=== PATIENT | female | born 1995 | race Hispanic/Latino ===

== ENCOUNTER 2024-08-25 18:23 | Emergency (ER) | payer MEDICAID ==
[~2024-08-25] VITALS: Ht 152.4 cm; Wt 63.5 kg
[2024-08-25 18:34] VITALS: BP 105/83; PULSE 92; RESP 18; TEMP 98.7
[2024-08-25] MEDS: 0.9%NACL 1000ML 1,000 ML IV ONE (19:00)
--- NOTE | 2024-08-25 19:21 | NUR ---
PT REFUSING IV AND BLOOD DRAW AT THIS TIME. MOM AT BEDSIDE.
--- NOTE | 2024-08-25 19:27 | ERN ---
ED Note History of Present Illness Stated Complaint: DEHYDRATED, NOT EATING Chief Complaint: Other Problems Time Seen by MD: 19:18 Dictation: This is a 29-year-old female who was brought to the emergency room by patient's mother with complaints of patient not eating or drinking for the past many weeks. Apparently her antipsychotic medications have been adjusted after which she has not been even drinking fluids. Patient herself states she is fine. Patient apparently was on sertraline which was stopped and quetiapine was initiated. Patient has also refused to take the medications. Patient's mother and aunt indicated that they went to [facility] and she got a injection and patient could not be convinced to stay in the hospital. They were somehow able to convince her to come to the ER here but since she has been here has not allow anybody to touch and rechecked the blood pressure, obtain any labs and has refused even small amount of juice or of fluids that were given. She is adamantly refusing and not allowing even an IV check and labs. In terms of the family situation, patient lives with her father in [place] while the patient his mother lives in [place]. Patient was constantly asking for her father and wanting to leave during my multiple reassessments as well. Temperature 98.7 pulse 92 respirations 18 blood pressure 105/83 with a pulse oximetry of 98% on room air Chronic medical problem includes schizophrenia She denied any suicidal ideations, hopelessness, homicidal ideations. She appeared quite paranoid stating that any food that she eats could be tempered and she does not want anyone to touch the food. I convinced her and gave her sealed juice that she needed to open and initially she was agreeable but then refused to drink the juice. Allergies: Coded Allergies: No Known Drug Allergies (Unverified Allergy, Unknown, 08/25/24) Past Medical History Past Medical History: No Pertinent History, Schizophrenia Surgical History: None PSYCH History: schizophrenia RN Note Reviewed/Agreed w/PFSH: Yes Review of System Dictation Constitutional: Negative for fever,chills, and weight loss Eyes: Negative for injury, pain,redness, and discharge ENT: Negative for injury,pain or swelling Cardiovascular: Negative for chest pain, palpitations, and edema Respiratory: Negative for shortness of breath, cough, and wheezing, Abdomen/GI: Negative for abdominal pain, nausea, vomiting, diarrhea, and constipation Back: Negative for injury and pain : Negative for injury, bleeding and discharge MS/Extremity: Negative for injury and deformity Skin: Negative for rash, and discoloration Neuro: Negative for headache, weakness, numbness, tingling, and seizure Psych: Negative for suicide ideation, homicidal ideation, and hallucinations Initial Vital Sign VS Vital Signs Date Time Temp Pulse Resp B/P (MAP) Pulse Ox O2 Delivery O2 Flow Rate FiO2 08/25/24 18:34 98.8 92 18 105/83 99 Physical Exam Dictation General: awake, alert, NAD generally anxious pacing in the room and also love. She had a blank stare but did make eye contact with me was very polite. Head/Face: Normocephalic, atraumatic Eyes: PERRL, EOMI, vision at baseline ENT: oral cavity clear, TMs clear, no signs of infection Neck: Trachea midline, supple, no nuchal rigidity Cardiovascular: RRR, normal S1/S2, No MRGs, no JVD Respiratory: CTAB, no respiratory distress, No rales or wheezes Abdomen: Soft, non-tender, non-distended, normal bowel sounds, no guarding or rebound. Skin: Warm, dry, normal turgor, no rash MS/Extremity: Pulses equal, no cyanosis, neurovascular intact, FROM Neuro: COAx4, GCS 15, strength 5/5, CN 2-12 intact, normal cerebellar exam, normal gait, Psych: Normal behavior, mood, and affect normal Extremities-trace edema without any palpable cords, Homans sign is negative ED Course ED Course Orders Procedure Category Date Status Time 12 Lead Ekg Tracing- EKG 08/25/24 Logged Technical 18:57 0.9%Nacl 1000ml (Ns PHA 08/25/24 Complete 1000ml) 19:00 Current Medications Medications (Trade) Dose Ordered Sig/Kimi Route PRN Reason Start Time Stop Time Status Last Admin Dose Admin Sodium Chloride 1,000 ml @ 125 mls/hr ONCE ONCE IV 08/25/24 19:00 08/25/24 21:15 DC Vital Signs Date Time Temp Pulse Resp B/P (MAP) Pulse Ox O2 Delivery O2 Flow Rate FiO2 08/25/24 18:34 98.8 92 18 105/83 99 We will perform diagnostic labs, and administer medications according to the patient's complaint. Once the results are available, will review and personally interpreted the labs to rule out any acute life-threatening emergency the trach require immediate intervention and treatment. I will then re-evaluate the patient after treatment and diagnostic exams have return to determine whether the patient requires any further testing, can safely be discharged home or need further admission to hospital for additional treatment and evaluation. Patient has been refusing any lab draws or IV placement adamantly I spent a lot of time and went back multiple times to re-evaluate discussed with patient's mother and aunt also. Patient remains very adamant and is refusing any lab draws IV placements or any treatment. She constantly states that she is fine I have explained to the patient's mother that patient may need to go back to [facility] and also her psychiatrist to have her medications readjusted or perhaps a long-acting antipsychotic .patient wanted to leave multiple times and was discharged. Medical Decision Making MDM MDM: Differential diagnosis: Schizophrenia with paranoid delusions Rationale: Tests considered and ordered secondary to shared decision making include: Previous outside records reviewed: Old ER visits. Risk of complication and/or morbidity or mortality of patient management: None Medications-Per medication reconciliation Need for hospitalization: Patient does not meet criteria for hospitalization. Need for emergency major/minor surgery: No There are no social concerns with this patient. Prescription drug management Prescriptions will include symptomatic care Patient's prior external medical records from other ER visits were reviewed by me as indicated. Prior testing and results from previous visits were reviewed. Prior tests were taken into account with medical decision making and resource utilization, independent historian/historians were used to obtain complete medical history. I independently interpreted the test that were performed, results were reviewed by me and considered findings on radiology if ordered. Medical management and examination interpretation discussions were had by me with other qualified healthcare professionals as indicated for the patient's care. Problem List Problem List: (1) Schizophrenia (2) Paranoid delusion (3) Medical non-compliance (4) Refuses to eat DX & DISP Disposition: Discharge Departure Impression: Primary Impression: Schizophrenia Additional Impressions: Paranoid delusion, Medical non-compliance, Refuses to eat Condition: Stable Additional Instructions: Patient and the caregiver have been informed of all the diagnostic tests and the imaging conducted during the today's visit to the emergency room and has verbalized understanding of the results I have personally reviewed and interpreted all diagnostic exams performed here in the ER today as well as the vital signs documented by the nursing staff. The patient is now being discharged to home and should follow up with the primary care physician or the specialist as directed by the ER staff. Follow-up with primary care provider in 1 to 2 days. Take medications as directed here in the emergency room. Okay to continue home medications unless otherwise discussed during your visit in the emergency room today. Return to your nearest emergency room if symptoms worsen or if there is no improvement. Call 911 if you need immediate assistance. Take Tylenol or Motrin [id number] as needed and if no contraindications are present. Increase oral hydration. A wound culture or urine culture was ordered here in the emergency room department please follow-up with primary care provider and advise them to get repeat ports from our facility. If you had any D[place]in wrap/splints that were applied here, please do not remove them until you see your primary care or specialty. Referrals: SELF,REFERRAL (PCP) CHASE BURKS MD Aug 25, 2024 19:27
--- NOTE | 2024-08-25 20:06 | NUR ---
PT REFUSED X-RAY.
== END 2024-08-25 21:15 | disposition home or self-care (01) ==
LOC: EDH 18:23
DX: F20.0 Paranoid schizophrenia (principal); Z91.199 Patient's noncompliance with other medical treatment and regimen due to unspecified reason
CPT/HCPCS: 99282